=== PATIENT | female | born 1970 | race Caucasian/White ===

== ENCOUNTER → 2019-01-17 20:52 | Outpatient (CLI) | payer BC | END | disposition home or self-care (01) | LOC: D.MAMMO 09:00 | PROVIDERS: ATTEND Nurse Practitioner Family | DX: Z12.31 Encounter for screening mammogram for malignant neoplasm of breast (principal) ==

== ENCOUNTER 2019-07-07 16:12 | Emergency (ER) | payer SELFPAY ==
[~2019-07-07] VITALS: Ht 165.1 cm; Wt 86.4 kg
[2019-07-07 16:18] VITALS: Ht 165.1 cm; Wt 86.4 kg
[2019-07-07] MEDS ORDERED: LISINOPRIL10 MG PO (16:19)
[2019-07-07] MEDS ORDERED: NORVASC5 MG PO (16:19)
[2019-07-07 17:24] LABS: BASOPHILS 0.1 % (0-2); EOSINOPHILS 0.7 % (0-7); HEMATOCRIT 48.8 % (36.0-48.0); IMMATURE GRANULOCYTES 0.5 % (0-5); LYMPHOCYTES 12.3 % (15-50); MCH 32.1 pg (26.0-34.0); MCHC 32.8 g/dL (31.0-37.0); MEAN PLATELET VOLUME 9.7 fL (7.4-10.4); MONOCYTES 6.8 % (2-11); NEUTROPHILS 79.6 % (40-80); PLATELET COUNT 179 10x3/uL (130-400); RBC 4.98 10x6/uL (4.00-5.40); RDW 12.9 % (11.5-14.5); WBC 14.7 10x3/uL (4.8-10.8)
[2019-07-07 17:42] LABS: ALKALINE PHOSPHATASE 105 U/L (30-120); ALT (SGPT) 26 U/L (10-68); BILIRUBIN - TOTAL 0.71 mg/dL (0.2-1.3); CALC OSMOLALITY 273 mosm/kg (275-300); CALCIUM 9.2 mg/dL (8.5-10.1); CARBON DIOXIDE 22.1 mmol/L (21.0-32.0); CHLORIDE - SERUM 101 mmol/L (98-107); CREATININE - SERUM 0.6 mg/dL (0.6-1.3); GLUCOSE 123 mg/dL (74-106); POTASSIUM - SERUM 4.2 mmol/L (3.5-5.1); PROTEIN - SERUM 7.6 g/dL (6.4-8.2); SODIUM 137 mmol/L (136-145); UREA NITROGEN 9 mg/dL (7-18); eGFR NON AFRICAN AMERICAN > 90 mL/min (90-120)
[2019-07-07] MEDS ORDERED: ULTRAM50 MG PO ×2 (18:31→19:08)
[2019-07-07 19:41] VITALS: BP 140/111
== END 2019-07-07 19:43 | disposition home or self-care (01) ==
LOC: D.ER 16:12
PROVIDERS: Family Medicine
DX: S22.42XA Multiple fractures of ribs, left side, initial encounter for closed fracture (principal); S22.009A Unspecified fracture of unspecified thoracic vertebra, initial encounter for closed fracture; I10 Essential (primary) hypertension; Z72.0 Tobacco use; X58.XXXA Exposure to other specified factors, initial encounter; M25.512 Pain in left shoulder

== ENCOUNTER 2019-10-29 15:32 | Emergency (ER) | payer BC ==
[~2019-10-29 15:32] MED LIST: LISINOPRIL10 MG PO; NORVASC5 MG PO; ULTRAM50 MG PO
[2019-10-29 15:46] VITALS: Ht 165.1 cm
[2019-10-29 16:25] LABS: BASOPHILS 0.3 % (0-2); HEMATOCRIT 45.3 % (36.0-48.0); HEMOGLOBIN 15.2 g/dL (12-16); IMMATURE GRANULOCYTES 0.3 % (0-5); LYMPHOCYTES 28.9 % (15-50); MCH 31.5 pg (26.0-34.0); MCHC 33.6 g/dL (31.0-37.0); MEAN PLATELET VOLUME 9.7 fL (7.4-10.4); MONOCYTES 6.4 % (2-11); NEUTROPHILS 59.1 % (40-80); RBC 4.82 10x6/uL (4.00-5.40); RDW 12.7 % (11.5-14.5); WBC 7.6 10x3/uL (4.8-10.8)
[2019-10-29 16:30] LABS: PLATELET COUNT 228 10x3/uL (130-400)
[2019-10-29 16:55] LABS: ANION GAP 12.7 mmol/L (8-16); CALCIUM 9.7 mg/dL (8.5-10.1); CARBON DIOXIDE 24.5 mmol/L (21.0-32.0); CREATININE - SERUM 0.9 mg/dL (0.6-1.3); POTASSIUM - SERUM 4.2 mmol/L (3.5-5.1)
[2019-10-29 16:58] LABS: ALBUMIN 3.7 g/dL (3.4-5.0); BILIRUBIN - TOTAL 0.58 mg/dL (0.2-1.3); MAGNESIUM - SERUM 2.1 mg/dL (1.8-2.4); PROTEIN - SERUM 7.3 g/dL (6.4-8.2)
[2019-10-29 17:14] LABS: BILIRUBIN NEGATIVE (NEGATIVE); KETONE NEGATIVE (NEGATIVE); NITRITE NEGATIVE (NEGATIVE); UROBILINOGEN NORMAL mg/dL (< 2)
[2019-10-29 17:15] LABS: BACTERIA MODERATE HPF (NONE SEEN); WHITE CELLS - URINE 0-5 HPF (0-4); YEAST >1+ /hpf (NONE SEEN)
[2019-10-29 20:17] VITALS: BP 152/97
[2019-10-29] MEDS ORDERED: ZOFRAN ODT4 MG/UDTAB PO (20:39)
[2019-10-29] MEDS ORDERED: CARAFATE1 G PO (20:39)
[2019-10-29] MEDS ORDERED: PROTONIX40 MG PO (20:39)
== END 2019-10-29 21:17 | disposition home or self-care (01) ==
LOC: D.ER 15:32
PROVIDERS: Family Medicine
DX: K29.60 Other gastritis without bleeding (principal); A04.8 Other specified bacterial intestinal infections; R10.13 Epigastric pain; N76.0 Acute vaginitis